=== PATIENT | female | born 1985 | race Two or more races ===

== ENCOUNTER 2019-10-18 11:15 | Inpatient (IN) | payer OTHER ==
[~2019-10-18] VITALS: Ht 171.4 cm; Wt 89.8 kg
[2019-11-11] MEDS ORDERED: PRENATAL CAPLE1 EAC1 PO (06:50)
== END 2019-11-13 12:07 | disposition home or self-care (01) | DRG 807 ==
LOC: LDR 11-11 05:59 → SURG-SUITE 11-11 19:47
PROVIDERS: ADMIT Obstetrics & Gynecology Maternal & Fetal Medicine; ATTEND Obstetrics & Gynecology Maternal & Fetal Medicine
PROC: 10E0XZZ Delivery of Products of Conception, External Approach (ICD-10-PCS; principal; 2019-11-11)
PROC: 0KQM0ZZ Repair Perineum Muscle, Open Approach (ICD-10-PCS; 2019-11-11)
PROC: 0W8NXZZ Division of Female Perineum, External Approach (ICD-10-PCS; 2019-11-11)
PROC: 3E033VJ Introduction of Other Hormone into Peripheral Vein, Percutaneous Approach (ICD-10-PCS; 2019-11-11)
PROC: 4A1HXFZ Monitoring of Products of Conception, Cardiac Rhythm, External Approach (ICD-10-PCS; 2019-11-11)
DX: O70.1 Second degree perineal laceration during delivery (principal); Z37.0 Single live birth; Z3A.40 40 weeks gestation of pregnancy

== ENCOUNTER 2019-11-02 08:52 | Outpatient (CLI) | payer OTHER | END 2019-11-02 09:47 | disposition home or self-care (01) | LOC: NST 08:52 | DX: Z34.83 Encounter for supervision of other normal pregnancy, third trimester (principal) ==

== ENCOUNTER 2019-11-08 07:33 | Outpatient (CLI) | payer OTHER | END 2019-11-08 08:09 | disposition home or self-care (01) | LOC: NST 07:33 | PROVIDERS: ATTEND Obstetrics & Gynecology Maternal & Fetal Medicine | DX: Z34.83 Encounter for supervision of other normal pregnancy, third trimester (principal) ==